=== PATIENT | male | born 1990 | race African-American/Black ===

== ENCOUNTER 2019-10-28 00:01 | Emergency (ER) | payer SELFPAY ==
[~2019-10-28] VITALS: Ht 172.7 cm; Wt 85.3 kg
[2019-10-28] MEDS ORDERED: cefTRIAXone SOD 1,000 MG VL IM ONE (02:00)
[2019-10-28] MEDS ORDERED: KETOROLAC TROMETH 60MG/2ML VIAL IM ONE (02:00)
[2019-10-28 02:14] VITALS: BP 144/93
== END 2019-10-28 02:25 | disposition home or self-care (01) ==
LOC: ER 00:05
DX: K04.7 Periapical abscess without sinus (principal); K02.9 Dental caries, unspecified
CPT/HCPCS: 96372; 99284; J0696; J1885

== ENCOUNTER 2022-09-03 23:41 | Emergency (ER) | payer SELFPAY ==
[~2022-09-03] VITALS: Ht 170.2 cm; Wt 90.0 kg
[2022-09-04 00:15] VITALS: BP 147/79
[2022-09-04] MEDS ORDERED: AMOX-277 PO (02:20)
[2022-09-04] MEDS ORDERED: IBUP800T27 PO (02:20)
[2022-09-04] MEDS ORDERED: cefTRIAXone SOD 1,000 MG VL IM ONE (02:30)
[2022-09-04] MEDS ORDERED: BENZOCAINE (DENTAL) 20 % SPRAY 60ML MT ONE (02:30)
[2022-09-04] MEDS ORDERED: LIDOCAINE 1% HCL (LOCAL ANESTH.) INJ 20ML MDV ID ONE (02:30)
== END 2022-09-04 02:50 | disposition home or self-care (01) ==
LOC: ER 23:41
DX: K04.7 Periapical abscess without sinus (principal); Z79.1 Long term (current) use of non-steroidal anti-inflammatories (NSAID); Z79.2 Long term (current) use of antibiotics
CPT/HCPCS: 96372; 99283; J0696; J2001

== ENCOUNTER 2024-06-06 16:33 | Emergency (ER) | payer OTHER ==
[~2024-06-06] VITALS: Ht 170.2 cm; Wt 89.0 kg
[~2024-06-06 16:33] MED LIST: AMOX875T4 PO; IBUP-1456 PO
[2024-06-06] MEDS: LORazepam 2MG/ML-1ML VIAL IV ONE (17:00)
[2024-06-06 17:04] LABS: Basophils # (auto) 0.1 10 ^3/uL (0-0.2); Basophils % (auto) 0.6 % (0.0-2.0); Eosinophils # (auto) 0 10 ^3/uL (0-0.8); Eosinophils % (auto) 0.1 % (0.0-7.0); Hematocrit 46.5 % (41.0-53.0); Hemoglobin 16.3 g/dL (13.5-17.5); Lymphocytes # (auto) 3.1 10 ^3/uL (0.4-5.4); Lymphocytes % (auto) 22.7 % (10.0-50.0); Mean Corpuscular Hemoglobin 30.5 pg (28.0-32.0); Mean Corpuscular Hgb Conc. 35.1 g/dL (32.0-36.0); Mean Corpuscular Volume 86.9 fL (80.0-100.0); Monocytes # (auto) 1.1 10 ^3/uL (0-1.3); Monocytes % (auto) 8.4 % (0.0-12.0); Neutrophils # (auto) 9.2 10 ^3/uL (1.6-8.6); Neutrophils % (auto) 68.2 % (37.0-80.0); Nucleated Red Blood Cells % 0.1 %; Platelet Count (auto) 323 10^3/uL (140-450); Red Blood Cells 5.35 10^6/uL (4.5-5.90); Red Cell Distribution Width 14.1 % (11.8-14.3); White Blood Cell 13.5 10^3/uL (4.4-10.8)
[2024-06-06 17:27] LABS: Chloride 105 mmol/L (98-107); Potassium 3.6 mmol/L (3.5-5.1); Sodium 142 mmol/L (136-145)
[2024-06-06 17:28] LABS: Anion Gap 7 (5-15); Calcium 11.2 mg/dL (8.7-10.4); Carbon Dioxide 30 mmol/L (20-30)
[2024-06-06 17:33] LABS: BUN/Creatinine Ratio 5.4 (10.0-20.0); Blood Urea Nitrogen 6 mg/dL (9-23); Glucose 100 mg/dL (74-106)
[2024-06-06] MEDS: SODIUM CHLORIDE 0.9% 1,000 ML IV ONE (18:19)
[2024-06-06] MEDS: ONDANSETRON HCL 4 MG/2 ML VIAL IV ONE (18:21)
[2024-06-06 19:30] LABS: Amphetamine Screen, Urine Neg (NEGATIVE); Barbiturate Scree,Urine Neg (NEGATIVE); Benzodiazephine Screen, Urine Neg (NEGATIVE); Cannabinoid Screen, Urine Neg (NEGATIVE); Cocaine Screen, Urine Neg (NEGATIVE); Opiate Scree,Urine Neg (NEGATIVE); Phencyclidine Screen, Urine Neg (NEGATIVE)
[2024-06-06 19:37] VITALS: BP 141/96; PULSE 97; RESP 18; TEMP 97.6; O2SAT 97
== END 2024-06-06 20:51 | disposition left against medical advice (07) ==
LOC: ER 16:33
DX: R11.2 Nausea with vomiting, unspecified (principal); T43.615A Adverse effect of caffeine, initial encounter; R00.0 Tachycardia, unspecified; Z79.899 Other long term (current) drug therapy
CPT/HCPCS: 36415; 74176; 80048; 80307; 85025; 96361; 96374; 99285; J2405; J7030

== ENCOUNTER 2024-08-25 17:46 | Emergency (ER) | payer OTHER ==
[~2024-08-25] VITALS: Ht 170.2 cm; Wt 91.6 kg
--- NOTE | 2024-08-25 19:22 | ED.PDOC ---
History of Present Illness HPI Comments 34-year-old male with PMHx HIV presents with a chief complaint of left knee pain x 2 days. Patient states that he was in a children's jumper and felt a pop on his left knee. Patient mentions that he went to an ER and had xrays done and was placed in a brace and discharged home. Patient is on crutches at the moment and has decreased ROM in his left leg/knee. Patient denies being prescribed any pain medication from the previous ER. Patient mentions taking ibuprofen at home, but has no relief of symptoms. Patient has a positive Overton test. Chief Complaint: Lower Extremity Time Seen by MD: 19:12 Primary Care Provider: [facility] Reviewed Notes: Medications, Allergies Allergies: Coded Allergies: NO KNOWN ALLERGIES (Unverified , 10/28/19) Home Meds Active Scripts Ibuprofen (Ibuprofen) 800 Mg Tab, 1 TAB PO TID PRN, #30 TAB 0 Refills Prov:THAO JO 09/04/22 Amoxicillin & Pot Clavulanate (Amoxicillin/Potassium Cla) 875 Mg Tab, 1 TAB PO BID for 7 Days, #14 TAB 0 Refills Prov:THAO JO 09/04/22 Information Source: Patient Mode of Arrival: CRUTCHES Severity: Moderate Timing: Days Duration: Since onset Prehospital treatment: None Past Medical History PAST MEDICAL HISTORY: HIV Surgical History: Denies all surgeries Family History Family History: Unknown Social History Smoker: Non-Smoker Alcohol: Denies ETOH Use Drugs: Denies Drug Use Lives In: Home Constitutional: denies: chills, diaphoresis, fatigue, fever, malaise, sweats, weakness, others EENTM: denies: blurred vision, double vision, ear bleeding, ear discharge, ear drainage, ear pain, ear ringing, eye pain, eye redness, hearing loss, mouth pain, mouth swelling, nasal discharge, nose bleeding, nose congestion, nose pain, photophobia, tearing, throat pain, throat swelling, voice changes, others Respiratory: denies: cough, hemoptysis, orthopnea, SOB at rest, shortness of breath, SOB with excertion, stridor, wheezing, others Cardiovascular: denies: chest pain, dizzy spells, diaphoresis, Dyspnea on exertion, edema, irregular heart beat, left arm pain, lightheadedness, palpitations, PND, syncope, others Gastrointestinal: denies: abdomen distended, abdominal pain, blood streaked bowels, constipated, diarrhea, dysphagia, difficulty swallowing, hematemesis, melena, nausea, poor appetite, poor fluid intake, rectal bleeding, rectal pain, vomiting, others Genitourinary: denies: burning, dysuria, flank pain, frequency, hematuria, incontinence, penile discharge, penile sore, pain, testicle pain, testicle swelling, urgency, others Neurological: denies: dizziness, fainting, headache, left sided numbness, left sided weakness, numbness, paresthesia, pre-existing deficit, right sided numbness, right sided weakness, seizure, speech problems, tingling, tremors, weakness, others Musculoskeletal: reports: muscle pain (LEFT MCL PAIN); denies: back pain, gout, joint pain, joint swelling, muscle stiffness, neck pain, others Integumetry: denies: bruises, change in color, change in hair/nails, dryness, laceration, lesions, lumps, rash, wounds, others Allergic/Immunocompromised: denies: Difficulty Healing, Frequent Infections, Hives, Itching, others Hematologic/Lymphatic: denies: anemia, blood clots, easy bleeding, easy bruising, swollen glands, others Endocrine: denies: excessive hunger, excessive sweating, excessive thirst, excessive urination, flushing, intolerance to cold, intolerance to heat, unexplained weight gain, unexplained weight loss, others Psychiatric: denies: anxiety, bipolar disorder, depression, hopeless, panic disorder, schizophrenia, sleepless, suicidal, others All Other Systems: Reviewed and Negative Physical Exam General Appearance: No Apparent Distress, Normal HEENT: Normal ENT Inspection, Pharynx Normal, TMs Normal Neck: Full Range of Motion, Non-Tender, Normal, Normal Inspection Respiratory: Chest Non-Tender, Lungs Clear, No Accessory Muscle Use, No Respiratory Distress, Normal Breath Sounds Cardiovascular: No Edema, No JVD, No Murmur, No Gallop, Normal Peripheral Pulses, Regular Rate/Rhythm Breast Exam: Deferred Gastrointestinal: No Organomegaly, Non Tender, No Pulsatile Mass, Normal Bowel Sounds, Soft Genitalia: Deferred Pelvic: Deferred Rectal: Deferred Extremities: Decreased range of motion, Normal capillary refill, No pedal edema, Tender (LEFT MCL PAIN; POSITIVE OVERTON TEST) Musculoskeletal : Apperance: Normal Neurologic: Alert, crnp II-XII nml as Tested, No Motor Deficits, Normal Affect, Normal Mood, No Sensory Deficits Cerebellar Function: Normal Reflexes: Normal Skin: Dry, Normal Color, Warm Lymphatic: No Adenopathy Was a procedure done? Was a procedure done?: No Differential Dx Considerations may include: knee fracture, knee sprain X-Ray, Labs, Meds, VS Vital Signs Date Time Temp Pulse Resp B/P (MAP) Pulse Ox O2 Delivery O2 Flow Rate FiO2 08/25/24 20:07 104 18 122/84 (97) 97 08/25/24 18:41 98.0 105 17 133/94 (107) 97 Time of 1ST Reevaluation: 19:42 Reevaluation 1ST: Unchanged Patient Education/Counseling: Diagnosis, Treatment, Prognosis Family Education/Counseling: No Family Present Departure 1 Departure Time of Disposition: 21:06 (Patient has a left knee sprain and likely ligamentous tear. We will discharge patient with outpatient ortho follow up.) Impression: Primary Impression: Left knee sprain Qualified Codes: S83.412A - Sprain of medial collateral ligament of left knee, initial encounter Disposition: HOME / SELF CARE / HOMELESS Condition: Stable Referrals: LEELA STALLINGS MD Additional Instructions: You sprained your knee. You can Skyler wrap your knee for comfort. You can apply ice as needed for swelling. You can take Tylenol and Motrin as needed for pain. You were prescribed oxycodone as needed for breakthrough pain. You can use crutches as needed. You should follow up with our orthopedic surgeon within 1 week to ensure your healing well. If your symptoms worsen, or you have any other concerns, then please return to the Emergency Room. e-Prescriptions Oxycodone HCl (Oxycodone Hydrochloride) 5 Mg Tab 5 MG PO QID PRN for 4 Days, #16 TAB Prov: EFRAÍN AGOSTO MD 08/25/24 Discharged With: Self Critical Care Note Critical Care Time?: No Stability Stability form required: No I personally scribed for EFRAÍN AGOSTO MD ([email or web address]) on 08/25/24 at 19:22. Electronically submitted by Darrell Lopez ([email or web address]). I personally scribed for EFRAÍN AGOSTO MD ([email or web address]) on 08/25/24 at 19:23. Electronically submitted by Darrell Lopez ([email or web address]). EFRAÍN AGOSTO MD Aug 25, 2024 19:22
--- NOTE | 2024-08-25 20:18 | DVH ---
CLINICAL INFORMATION: 34 years old, Male; fall, knee pain. TECHNIQUE: 3 views of the let knee were obtained. COMPARISON: None FINDINGS: No acute fracture or dislocation. No significant arthropathy. No focal soft tissue swelling . Moderate knee joint effusion. IMPRESSION: No evidence of acute bony abnormality.
[2024-08-25] MEDS ORDERED: OXYC-900 PO (21:08)
[2024-08-25] MEDS: HYDROcodone-ACET 5/325MG TAB PO ONE (21:10)
[2024-08-25 21:12] VITALS: BP 124/72; PULSE 99; TEMP 97.6
[2024-08-25 21:25] VITALS: RESP 18; O2SAT 95
== END 2024-08-25 21:27 | disposition home or self-care (01) ==
LOC: ER 17:46
DX: S83.92XA Sprain of unspecified site of left knee, initial encounter (principal); Z79.1 Long term (current) use of non-steroidal anti-inflammatories (NSAID); Z79.2 Long term (current) use of antibiotics; X50.1XXA Overexertion from prolonged static or awkward postures, initial encounter; Y93.89 Activity, other specified; Y92.89 Other specified places as the place of occurrence of the external cause; Y99.8 Other external cause status
CPT/HCPCS: 73564

== ENCOUNTER 2025-05-04 13:56 | Emergency (ER) | payer OTHER ==
[~2025-05-04] VITALS: Ht 175.3 cm; Wt 94.2 kg
[~2025-05-04 13:56] MED LIST changes: +OXYC-900 PO
[2025-05-04 13:57] VITALS: BP 134/88; RESP 15; TEMP 98; O2SAT 95
[2025-05-04 14:06] VITALS: PULSE 92
[2025-05-04 14:24] LABS: Hematocrit 49.6 % (41.0-53.0); Hemoglobin 16.7 g/dL (13.5-17.5); Mean Corpuscular Hemoglobin 29.7 pg (28.0-32.0); Mean Corpuscular Volume 88.3 fL (80.0-100.0); Nucleated Red Blood Cells % 0.3 %
[2025-05-04 14:29] LABS: Chloride 103 mmol/L (98-107); Potassium 4.3 mmol/L (3.5-5.1); Sodium 140 mmol/L (136-145)
[2025-05-04 14:30] LABS: Anion Gap 9 (5-15); Carbon Dioxide 28 mmol/L (20-31)
[2025-05-04 14:31] LABS: Calcium 9.2 mg/dL (8.7-10.4)
[2025-05-04 14:36] LABS: BUN/Creatinine Ratio 8.0 (10.0-20.0); Blood Urea Nitrogen 8 mg/dL (9-23); Glucose 126 mg/dL (74-106)
--- NOTE | 2025-05-04 14:45 | ED.PDOC ---
History of Present Illness HPI Comments 34 y/o M, with PMHx of HIV presents to the ED for CC of dizziness. Patient states, he has been experiencing symptoms of dizziness with associated nausea, vomiting, and occasional bloody stools onset, p1vuuty ago. Patient reports, that he has been out of his HIV medication for xmonths and is unsure if symptoms maybe related to this. Patient comments, he has an appointment set-up with his PCP until, late May 2025. Patient denies fever, chills, fatigue, weakness, or blurred vision. No other symptoms or modifying factors are present at this time. Chief Complaint: Dizziness Time Seen by MD: 14:30 Primary Care Provider: [facility] Reviewed Notes: Nurses Notes, Medications, Allergies Allergies: Coded Allergies: NO KNOWN ALLERGIES (Unverified , 10/28/19) Home Meds Active Scripts Oxycodone HCl (Oxycodone Hydrochloride) 5 Mg Tab, 5 MG PO QID PRN for 4 Days, #16 TAB Prov:EFRAÍN AGOSTO MD 08/25/24 Ibuprofen (Ibuprofen) 800 Mg Tab, 1 TAB PO TID PRN, #30 TAB 0 Refills Prov:THAO JO 09/04/22 Amoxicillin & Pot Clavulanate (Amoxicillin/Potassium Cla) 875 Mg Tab, 1 TAB PO BID for 7 Days, #14 TAB 0 Refills Prov:THAO JO 09/04/22 Information Source: Patient Mode of Arrival: Ambulatory Severity: Moderate Timing: Weeks Duration: Since onset Prehospital treatment: None Medication Refill: Ran out of Medication Past Medical History PAST MEDICAL HISTORY: HIV Surgical History: Denies all surgeries Family History Family History: Unknown Social History Smoker: Non-Smoker Alcohol: Denies ETOH Use Drugs: Denies Drug Use Lives In: Home Constitutional: denies: chills, diaphoresis, fatigue, fever, malaise, sweats, weakness, others EENTM: denies: blurred vision, double vision, ear bleeding, ear discharge, ear drainage, ear pain, ear ringing, eye pain, eye redness, hearing loss, mouth pain, mouth swelling, nasal discharge, nose bleeding, nose congestion, nose pain, photophobia, tearing, throat pain, throat swelling, voice changes, others Respiratory: denies: cough, hemoptysis, orthopnea, SOB at rest, shortness of breath, SOB with excertion, stridor, wheezing, others Cardiovascular: denies: chest pain, dizzy spells, diaphoresis, Dyspnea on exertion, edema, irregular heart beat, left arm pain, lightheadedness, palpitations, PND, syncope, others Gastrointestinal: reports: nausea, vomiting, others (bloody stools); denies: abdomen distended, abdominal pain, blood streaked bowels, constipated, diarrhea, dysphagia, difficulty swallowing, hematemesis, melena, poor appetite, poor fluid intake, rectal bleeding, rectal pain Genitourinary: denies: burning, dysuria, flank pain, frequency, hematuria, incontinence, penile discharge, penile sore, pain, testicle pain, testicle swelling, urgency, others Neurological: reports: dizziness; denies: fainting, headache, left sided numbness, left sided weakness, numbness, paresthesia, pre-existing deficit, right sided numbness, right sided weakness, seizure, speech problems, tingling, tremors, weakness, others Musculoskeletal: denies: back pain, gout, joint pain, joint swelling, muscle pain, muscle stiffness, neck pain, others Integumetry: denies: bruises, change in color, change in hair/nails, dryness, laceration, lesions, lumps, rash, wounds, others Allergic/Immunocompromised: denies: Difficulty Healing, Frequent Infections, Hives, Itching, others Hematologic/Lymphatic: denies: anemia, blood clots, easy bleeding, easy bruising, swollen glands, others Endocrine: denies: excessive hunger, excessive sweating, excessive thirst, excessive urination, flushing, intolerance to cold, intolerance to heat, unexplained weight gain, unexplained weight loss, others Psychiatric: denies: anxiety, bipolar disorder, depression, hopeless, panic disorder, schizophrenia, sleepless, suicidal, others All Other Systems: Reviewed and Negative Physical Exam General Appearance: Moderate Distress HEENT: Normal ENT Inspection, Pharynx Normal, TMs Normal Neck: Full Range of Motion, Non-Tender, Normal, Normal Inspection Respiratory: Chest Non-Tender, Lungs Clear, No Accessory Muscle Use, No Respiratory Distress, Normal Breath Sounds Cardiovascular: No Edema, No JVD, No Murmur, No Gallop, Normal Peripheral Pulses, Regular Rate/Rhythm Breast Exam: Deferred Gastrointestinal: No Organomegaly, Non Tender, No Pulsatile Mass, Normal Bowel Sounds, Soft Genitalia: Deferred Pelvic: Deferred Rectal: Deferred Extremities: No calf tenderness, Normal capillary refill, Normal inspection, Normal range of motion, Non-tender, No pedal edema Musculoskeletal : Apperance: Normal Neurologic: Alert, long chain beamer II-XII nml as Tested, No Motor Deficits, Normal Affect, Normal Mood, No Sensory Deficits Cerebellar Function: Normal Reflexes: Normal Skin: Dry, Normal Color, Warm Peripheral Pulses: 3+ Radial (R), 3+ Radial (L) Lymphatic: No Adenopathy Was a procedure done? Was a procedure done?: No Differential Dx Considerations may include: migraine headache, generalized headache, X-Ray, Labs, Meds, VS Vital Signs Date Time Temp Pulse Resp B/P (MAP) Pulse Ox O2 Delivery O2 Flow Rate FiO2 05/04/25 14:06 92 05/04/25 13:57 98.0 101 15 134/88 95 98.0 Lab Test 05/04/25 14:12 Range/Units White Blood Count 7.7 4.4-10.8 10^3/uL Red Blood Count 5.62 4.5-5.90 10^6/uL Hemoglobin 16.7 13.5-17.5 g/dL Hematocrit 49.6 41.0-53.0 % Mean Corpuscular Volume 88.3 80.0-100.0 fL Mean Corpuscular Hemoglobin 29.7 28.0-32.0 pg Mean Corpuscular Hemoglobin Concent 33.6 32.0-36.0 g/dL Red Cell Distribution Width 14.5 H 11.8-14.3 % Platelet Count 293 140-450 10^3/uL Mean Platelet Volume 8.8 6.9-10.8 fL Neutrophils (%) (Auto) 53.9 37.0-80.0 % Lymphocytes (%) (Auto) 37.6 10.0-50.0 % Monocytes (%) (Auto) 7.3 0.0-12.0 % Eosinophils (%) (Auto) 0.8 0.0-7.0 % Basophils (%) (Auto) 0.4 0.0-2.0 % Neutrophils # (Auto) 4.2 1.6-8.6 10 ^3/uL Lymphocytes # (Auto) 2.9 0.4-5.4 10 ^3/uL Monocytes # (Auto) 0.6 0-1.3 10 ^3/uL Eosinophils # (Auto) 0.1 0-0.8 10 ^3/uL Basophils # (Auto) 0 0-0.2 10 ^3/uL Nucleated Red Blood Cells 0.3 % Sodium Level 140 136-145 mmol/L Potassium Level 4.3 3.5-5.1 mmol/L Chloride Level 103 98-107 mmol/L Carbon Dioxide Level 28 20-31 mmol/L Anion Gap 9 5-15 Blood Urea Nitrogen 8 L 9-23 mg/dL Creatinine 1.00 0.700-1.30 mg/dL Glomerular Filtration Rate Calc 102 >90 mL/min BUN/Creatinine Ratio 8.0 L 10.0-20.0 Serum Glucose 126 H 74-106 mg/dL Calcium Level 9.2 8.7-10.4 mg/dL Patient alert. No sign of distress. Vitals stable. Answering all questions. Ambulating without difficulty. No sign of any injury. No leg swelling. No chest pain. No shortness a breath. WBC within normal limits. Hemoglobin within normal limits. No abdominal physical examination. Explained to the patient. Was told to follow up with his primary care physician. Was told to come back if there is any problem. Time of 1ST Reevaluation: 15:00 Reevaluation 1ST: Improved Patient Education/Counseling: Diagnosis, Treatment Family Education/Counseling: No Family Present SEPSIS Sepsis Screen Date sepsis recognized/suspect: May 04, 2025 Time Sepsis recognized/suspect: 1359 Recent Procedure: No On Antibiotic Therapy: No Respiratory Rate >20: No Heart Rate >90: No Temp<36 C (96.8 F) or >38.3 C: No SBP <90 or MAP <65 mmHG: No New Acute Mental Status Change: No Is the patient on CPAP, BIPAP,: No Physician Orders Electrocardigram (05/04/25 14:01) Vital Signs Date Time Temp Pulse Resp B/P (MAP) Pulse Ox O2 Delivery O2 Flow Rate FiO2 05/04/25 14:06 92 05/04/25 13:57 98.0 101 15 134/88 95 98.0 Laboratory Tests Test 05/04/25 14:12 White Blood Count 7.7 10^3/uL (4.4-10.8) Departure 1 Departure Time of Disposition: 16:21 Impression: Primary Impression: Anxiety Disposition: 01 HOME / SELF CARE / HOMELESS Condition: Good Discharged With: Self Critical Care Note Critical Care Time?: No Stability Stability form required: No Heart Score Heart Score: Heart Score Response (Comments) Value History N/A 0 EKG N/A 0 Age N/A 0 Risk Factors N/A 0 Troponin N/A 0 Total 0 I personally scribed for COLTON VALLEJO MD ([email or web address]) on 05/04/25 at 14:44. Electronically submitted by Sadia Staley ([email or web address]). COLTON VALLEJO MD May 04, 2025 14:44
--- NOTE | 2025-05-06 12:26 | ECG ---
[facility] Test Date: 2025-05-04 Test Time: 14:06:20 Pat Name: SUKHI KRUEGER Department: ED Room: Gender: M Social Organization Professor: dr UMANZOR: 1990 Requested By: COLTON VALLEJO Order Number: [id number] Reading MD: Alfred Vizcarra Measurements Intervals [place] Rate: 92 P: 61 NH: 155 QRS: 50 QRSD: 83 T: 12 QT: 361 QTc: 447 Interpretive Statements Sinus rhythm Borderline ST elevation, lateral leads Electronically Signed On 05-06-2025 22:29:08 PDT by Alfred Vizcarra Please click the below link to view image of tracing.
== END 2025-05-04 17:18 | disposition home or self-care (01) ==
LOC: ER 13:56
DX: F41.9 Anxiety disorder, unspecified (principal); Z79.899 Other long term (current) drug therapy
CPT/HCPCS: 36415; 80048; 82947; 85025; 93005